=== PATIENT | female | born 1965 | race African-American/Black ===

== ENCOUNTER → 2017-04-01 | Outpatient (CLI) | payer OTHER ==
[~2017-04-01] MED LIST: ALBUTEROL17 GM INH; KEFLEX PO; LORTAB 2.5/5001 TAB PO; UNK BP MED
== END | disposition home or self-care (01) ==
LOC: CECH 03-30 13:00
DX: R60.9 Edema, unspecified (principal); G47.33 Obstructive sleep apnea (adult) (pediatric)
CPT/HCPCS: 93306